=== PATIENT | female | born 1945 | race Hispanic/Latino ===

== ENCOUNTER 2019-05-27 09:20 | Outpatient (CLI) | payer MEDICARE ==
--- NOTE | 2019-05-27 11:33 | MMO ---
Bilateral MAMMO Bilat Screen [facility]. CLINICAL HISTORY: Patient is 73 years old and is seen for screening. The patient has no family history of breast cancer. The patient has no personal history of cancer. VIEWS: The views performed were: bilateral craniocaudal with tomosynthesis and bilateral mediolateral oblique with tomosynthesis. FILMS COMPARED: The present examination has been compared to prior imaging studies performed at [facility] on 02/01/2016, 02/09/2017 and 03/05/2018, and at [facility] on 09/28/2014. This study has been interpreted with the assistance of computer-aided detection. MAMMOGRAM FINDINGS: There are scattered fibroglandular densities. There are benign appearing calcifications seen in both breasts. There are benign scattered densities in both breasts. There are no suspicious masses, suspicious calcifications, or new areas of architectural distortion. IMPRESSION: THERE IS NO MAMMOGRAPHIC EVIDENCE OF MALIGNANCY. A ROUTINE FOLLOW-UP MAMMOGRAM IN 1 YEAR IS RECOMMENDED. THE RESULTS OF THIS EXAM WERE SENT TO THE PATIENT. ACR BI-RADS Category 2 - Benign finding MAMMOGRAPHY NOTE: 1. A negative mammogram report should not delay a biopsy if a dominant of clinically suspicious mass is present. 2. Approximately 10% to 15% of breast cancers are not detected by mammography. 3. Adenosis and dense breasts may obscure an underlying neoplasm. Reported by: JAXON BRADY MD Electonically Signed: [id number]
== END 2019-05-27 09:21 | disposition home or self-care (01) ==
LOC: BICMAMMO 09:20
PROVIDERS: ATTEND Student in an Organized Health Care Education/Training Program
DX: Z12.31 Encounter for screening mammogram for malignant neoplasm of breast (principal)
CPT/HCPCS: 77063; 77067

== ENCOUNTER 2019-11-28 10:20 | Observation (INO) | payer MEDICARE ==
[2019-11-28] MEDS ORDERED: Nitroglycerin 2% Ointment 1 INCH/1 GM Packet ONE (11:07)
[2019-11-28] MEDS ORDERED: Aspirin Chewable 81 MG TAB ONE (11:07)
[2019-11-28 11:22] LABS: #Basophils 0.1 thou/uL (0.0-0.2); #Eosinphils 0.2 thou/uL (0.0-0.7); #Lymphocytes 2.3 thou/uL (1.20-3.40); #Monocytes 0.5 thou/uL (0.11-0.59); #Neutrophils 4.9 thou/uL (1.40-6.50); %Basophils 1.6 % (0.0-1.0); %Eosinophils 2.2 % (0.0-10.0); %Monocytes 6.4 % (0.0-10.0); %Neutrophils 60.8 % (42.0-75.0); Hemoglobin 11.7 g/dL (12.0-16.0); Mean Corpuscular HGB CONC 31.1 g/dL (32.0-36.0); Mean Corpuscular Hemoglobin 27.3 pg (27.0-31.0); Mean Corpuscular Volume 87.8 fL (78.0-98.0); Mean Platelet Volume 8.3 fL (7.4-10.4); Platelet Count 296 thou/uL (130-400); RBC Distribution Width 13.7 % (11.5-14.5); White Blood Cell (WBC) Count 8.1 thou/uL (4.8-10.8)
[2019-11-28 11:36] LABS: ALT (SGPT) 17 U/L (8-55); AST (SGOT) 20 U/L (5-34); Albumin 4.5 g/dL (3.4-4.8); Alkaline Phosphatase 52 U/L (40-110); Anion Gap 16 mmol/L (10-20); BUN (Urea Nitrogen) 22 mg/dL (9.8-20.1); Bilirubin, Total 0.4 mg/dL (0.2-1.2); CK (CPK) 43 U/L (29-168); Calc. Creatinine Clearance 0 mL/min (70-130); Calcium 9.7 mg/dL (7.8-10.44); Carbon Dioxide 26 mmol/L (23-31); Chloride 103 mmol/L (98-107); Estimated GFR-MDRD 70; Globulin 2.5 g/dL (2.4-3.5); Glucose 118 mg/dL (83-110); Lipase 53 U/L (8-78); Potassium 3.9 mmol/L (3.5-5.1); Sodium 141 mmol/L (136-145)
--- NOTE | 2019-11-28 12:04 | PDOC.FPRHP ---
- History of Present Illness Chief Complaint: CP r/o History of Present Illness: 74 year old female with intermittent chest pain since the beginning of the year. She states it is sharp and stabbing nature. It lasts for a few seconds at a time. She experiences the pain several times a day, particularly over the last 2 days. Patient endorses radiation to left side of neck and down left arm. The radiation of symptoms resolves when chest pain resolves. Endorses associated nausea. Denies diaphoresis. Patient states the pain is located over left chest. Touching the left side of the chest does exacerbate the pain. Patient endorses associated dizziness, worse yesterday. The dizziness was after experiencing a sharp pain. Denies exacerbation of pain with deep breath or movement. Patient has not taken anything for pain specifically. Denies swelling in legs. Patient states she is able to walk a fair distance without shortness of breath. Patient denies abdominal pain, constipation, fever, chills. Endorses occasional diarrhea. Endorses a "tickle" cough at night related to sinuses. Patient has not taken BP medications this morning. Patient was referred to [facility] in late August for possible outpatient stress test. She had appointment scheduled, but was unable to go due to COVID-19, as all non- emergent appointments with Cardiology were cancelled. Patient with PMH DM, very well controlled on metformin. Patient lost a significant amount of weight which has helped (50 Ibs). Patient states she has gained approximately 20 Ibs of that back. Patient with HTN. Not checking BP at home. Reports she did not take BP medications today. Patient with history of iron deficiency anemia. No longer needing iron supplementation. 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 denies: fever/chills Eyes: denies: vision changes ENT: denies: nasal congestion, rhinorrhea Respiratory: reports: cough (at night). denies: congestion, shortness of breath Cardiovascular: reports: chest pain. denies: palpitation, edema Gastrointestinal: reports: nausea, diarrhea. denies: vomiting, constipation, abdominal pain, GI bleeding Skin: denies: rashes, lesions Musculoskeletal: denies: pain, tenderness, stiffness Neurological: reports: other (dizziness). denies: numbness, syncope Psychological: denies: anxiety, depression - Vital signs BP: 154/61 HR: 67 RR: 18 Tmax: 99.0 Pox: 96% on RA Wt: 59 kg - Physical Exam Constitutional: NAD, awake, alert and oriented, well developed HEENT: EOMI, grossly normal vision, grossly normal hearing, MMM Neck: FROM, no JVD Chest: no lesions Heart: RRR, no murmurs/rubs/gallops Lungs: CTAB, no respiratory distress Abdomen: soft, non-tender, bowel sounds present, no masses/distention Musculoskeletal: normal tone, ROM grossly normal Neurological: no focal deficit, CN II-XII intact Skin: capillary refill <2 seconds, no jaundice Heme/Lymphatic: no unusual bruising or bleeding, no purpura Psychiatric: normal mood and affect, good judgment and insight, intact recent and remote memory FMR H&P: Results - Labs Result Diagrams: 11/28/19 11:04 11/28/19 11:04 Lab results: WBC 8.1 thou/uL (4.8-10.8) 11/28/19 11:04 Hgb 11.7 g/dL (12.0-16.0) L 11/28/19 11:04 Hct 37.7 % (36.0-47.0) 11/28/19 11:04 MCV 87.8 fL (78.0-98.0) 11/28/19 11:04 Plt Count 296 thou/uL (130-400) 11/28/19 11:04 Neutrophils % 60.8 % (42.0-75.0) 11/28/19 11:04 Sodium 141 mmol/L (136-145) 11/28/19 11:04 Potassium 3.9 mmol/L (3.5-5.1) 11/28/19 11:04 Chloride 103 mmol/L (98-107) 11/28/19 11:04 Carbon Dioxide 26 mmol/L (23-31) 11/28/19 11:04 BUN 22 mg/dL (9.8-20.1) H 11/28/19 11:04 Creatinine 0.80 mg/dL (0.6-1.1) 11/28/19 11:04 Glucose 118 mg/dL (83-110) H 11/28/19 11:04 Calcium 9.7 mg/dL (7.8-10.44) 11/28/19 11:04 Total Bilirubin 0.4 mg/dL (0.2-1.2) 11/28/19 11:04 AST 20 U/L (5-34) 11/28/19 11:04 ALT 17 U/L (8-55) 11/28/19 11:04 Alkaline Phosphatase 52 U/L (40-110) 11/28/19 11:04 Creatine Kinase 43 U/L (29-168) 11/28/19 11:04 B-Natriuretic Peptide 225.3 pg/mL (0-100) H 11/28/19 11:04 Serum Total Protein 7.0 g/dL (6.0-8.3) 11/28/19 11:04 Albumin 4.5 g/dL (3.4-4.8) 11/28/19 11:04 Lipase 53 U/L (8-78) 11/28/19 11:04 - EKG Interpretation EKG: NSR, no ST abnormalities or T wave changes - Radiology Interpretation Chest x-ray Status: image reviewed by me, report reviewed by me Additional comment: CXR without infiltrates or edema, no pneumothorax. FMR H&P: A/P - Problem List (1) Atypical chest pain Current Visit: Yes Status: Acute Code(s): R07.89 - OTHER CHEST PAIN (2) Diabetes mellitus Current Visit: Yes Status: Acute Code(s): E11.9 - TYPE 2 DIABETES MELLITUS WITHOUT COMPLICATIONS Qualifiers: Diabetes mellitus type: type 2 (3) HTN (hypertension) Current Visit: Yes Status: Acute Code(s): I10 - ESSENTIAL (PRIMARY) HYPERTENSION Qualifiers: Hypertension type: essential hypertension Qualified Code(s): I10 - Essential (primary) hypertension - Plan Pt is a 74 yo female who presents for: # Chest Pain Not likely cardiac but pain has been intermittent since 07/21, she was unable to have cardiology visit in outpt setting 2/2 COVID - cardiac stress pending in am, NPO midnight - pt has nitro-paste on chest - TSH pending # HLD - continue home meds - Lipid pending # HTN - continue home meds - hold metoprolol in am # DM II - continue home meds - pending a1c # Iron Deficiency Anemia - well controlled - will not continue iron # Weight Loss Pt has hx of 50 # weight loss then regaining 20 #'s. She has family hx of stomach cancer but does not want any scans. # Allergies - continue home meds VTE: lovenox Fluids: PO Diet: HH, NPO midnight Code: Full Dispo: < 48 hrs stay on tele FMR H&P: Upper Level - Pertinent history 74 year old female presents with intermittent chest pain since August. Patient described pain as sharp and stabbing in nature, lasting only seconds at a time. Pain not worse with exertion. Pain sometimes associated with dizziness and nausea. Denies diaphoresis. Associated left sided neck and arm pain. Not worsened with deep breath or movement. Endorses pain with palpation. Patient with history of very well controlled DM and HTN. She was supposed to see Cardiology in August due to this chest pain. An appt was scheduled but then cancelled due to COVID-19. - Pertinent findings General: Alert and oriented x3. NAD. HEENT: MMM. Card: RRR, no murmur Resp: CTA bilaterally, no acute respiratory distress MSK: TTP over left anterior chest, worse near sternal border Abdomen: Non-tender to palpation, bowel sounds present Ext: No edema or cyanosis - Plan Date/Time: 11/28/19 1203 IAlejandra, have evaluated this patient and agree with findings/plan as outlined by fall internship resident. Pertinent changes/additions are listed here. Atypical chest pain - EKG NSR - Heart score: 4 - Risk factors include age, DM, HLD, HTN - Stress test in AM - NPO at midnight, hold BB at midnight - Trend trop DM type II - Last HgA1c a year ago was 5.8 - On metformin BID - CC, HH diet - Very well controlled - Will get HgA1c to evaluate since it has been a year since last HgA1c HTN - Continue home medications DVT PPX: Lovenox GI PPX: None Code Status: Full Dispo: Obs on telemetry. Stress test in AM. Addendum - Attending - Attending Attestation Date/Time: 11/28/191918 I personally evaluated the patient and discussed the management with Dr. Deluca /Kinjal. I agree with the History, Examination, Assessment and Plan documented above with any addition or exceptions noted below. Patient of mine here for continued chest pain and inability to get outpatient workup. Stress in AM, comorbid conditions are well controlled.
--- NOTE | 2019-11-28 12:52 | RAD ---
PORTABLE CHEST: DATE: 11/28/2019. PROVIDED CLINICAL HISTORY: Chest pain. FINDINGS: Comparison 12/20/2010. Cardiac and mediastinal silhouette is within normal limits. No focal consolid ation, pleural fluid, or pneumothorax apparent. IMPRESSION: No evidence for an acute cardiopulmonary process. POS: LEX
[2019-11-28 13:54] VITALS: BMI 25.4
[2019-11-28] MEDS ORDERED: Ondansetron PF 4 MG/2 ML Vial IVP PRN (14:20)
[2019-11-28] MEDS ORDERED: Sodium Chloride 0.9% 1,000 ML IV SCH (14:20)
[2019-11-28] MEDS ORDERED: Ondansetron ODT 4 MG TAB SL PRN (14:20)
[2019-11-28] MEDS ORDERED: Hydrochlorothiazide 25 MG TAB PO SCH (14:25)
[2019-11-28] MEDS ORDERED: Acetaminophen 325 MG TAB PO PRN (14:29)
[2019-11-28] MEDS ORDERED: Lisinopril 20 MG TAB PO SCH (14:30)
[2019-11-28] MEDS ORDERED: Nitroglycerin 2% Ointment 1 INCH/1 GM Packet TOP SCH (14:30)
[2019-11-28 14:52] LABS: Hemoglobin A1c 5.8 % (4.0-6.0)
[2019-11-28 14:53] LABS: Troponin I Less than 0.010 ng/mL (< 0.028)
[2019-11-28] MEDS ORDERED: Nitroglycerin 0.4 MG TAB (25 Tab Bottle) SL PRN (16:10)
[2019-11-28 17:28] LABS: Troponin I Less than 0.010 ng/mL (< 0.028)
[2019-11-28] MEDS ORDERED: Metoprolol Tartrate 50 MG TAB PO SCH (19:00)
[2019-11-29 05:25] LABS: Anion Gap 14 mmol/L (10-20); BUN (Urea Nitrogen) 24 mg/dL (9.8-20.1); Calc. Creatinine Clearance 55 mL/min (70-130); Calcium 9.3 mg/dL (7.8-10.44); Carbon Dioxide 29 mmol/L (23-31); Cardiac Risk 2.5 (Less than 4.5); Chloride 102 mmol/L (98-107); Cholesterol 116 mg/dl (< 200 Desired); Estimated GFR-MDRD 63; Glucose 106 mg/dL (83-110); HDL Cholesterol 46 mg/dL (>60 Neg Risk); LDL Cholesterol, Calculated 57 mg/dL; Potassium 3.9 mmol/L (3.5-5.1); Sodium 141 mmol/L (136-145); Triglycerides 66 mg/dL (Less than 150)
--- NOTE | 2019-11-29 07:17 | PDOC.FM ---
- Subjective Subjective: Pt did well overnight. She had intermittent shart chest pain, 09/12, per nurse. - Objective Vital Signs & Weight: Vital Signs (12 hours) Temp Pulse Resp BP Pulse Ox 11/29/19 04:00 97.4 F L 64 16 94/52 L 97 11/29/19 00:17 99 11/28/19 23:12 97.9 F 66 16 110/55 L 98 11/28/19 19:27 99 F 69 16 136/64 99 Weight Weight 61.19 kg Result Diagrams: 11/28/19 11:04 11/29/19 04:45 Phys Exam - Physical Examination Constitutional: NAD Neck: no JVD, full ROM No respiratory distress Musculoskeletal: no edema Neurological: non-focal, moves all 4 limbs Psychiatric: normal affect, A&O x 3 Dx/Plan (1) Atypical chest pain Code(s): R07.89 - OTHER CHEST PAIN Status: Acute (2) Diabetes mellitus Code(s): E11.9 - TYPE 2 DIABETES MELLITUS WITHOUT COMPLICATIONS Status: Acute Qualifiers: Diabetes mellitus type: type 2 (3) HTN (hypertension) Code(s): I10 - ESSENTIAL (PRIMARY) HYPERTENSION Status: Acute Qualifiers: Hypertension type: essential hypertension Qualified Code(s): I10 - Essential (primary) hypertension - Plan Plan: Pt is a 74 yo female who presents for: # Chest Pain Not likely cardiac but pain has been intermittent since 07/21, she was unable to have cardiology visit in outpt setting 2/ COVID - cardiac stress pending in am, NPO midnight - pt has nitro-paste on chest - TSH WNL - Trop neg x 3 # HLD - continue home meds - Lipid profile well controlled - continue statin with recommendation based on ASCVD risk calculator # HTN - continue home meds - hold metoprolol in am # DM II - continue home meds - a1c 5.8 # Iron Deficiency Anemia - well controlled - will not continue iron # Weight Loss Pt has hx of 51 # weight loss then regaining 20 #'s. She has family hx of stomach cancer but does not want any scans. # Allergies - continue home meds VTE: lovenox Fluids: PO Diet: HH, NPO midnight Code: Full Dispo: < 48 hrs stay on tele Addendum - Attending - Attending Attestation Date/Time: 11/30/19 1207 I personally evaluated the patient and discussed the management with Dr. Deluca. I agree with the History, Examination, Assessment and Plan documented above with any addition or exceptions noted below. Patient stable, stress normal. Follow up outpatient with cardiology. Stable for discharge.
[2019-11-29] MEDS ORDERED: Enoxaparin Sodium 40 MG/0.4 ML SYRINGE SC SCH (09:00)
[2019-11-29] MEDS ORDERED: Aspirin 81 mg Enteric Coated Tablet PO SCH (09:00)
[2019-11-29] MEDS ORDERED: Hydrochlorothiazide 25 MG TAB PO SCH (09:00)
[2019-11-29] MEDS ORDERED: Lisinopril 20 MG TAB PO SCH (09:00)
[2019-11-29] MEDS ORDERED: ADENOSINE 60 MG/20 ML VIAL ONE (09:22)
[2019-11-29] MEDS ORDERED: Dextrose 50% Abboject 50 ML SYRINGE SLOW IVP PRN (11:05)
[2019-11-29] MEDS ORDERED: Dextrose 5% in Water 1,000 ML IV PRN (11:05)
[2019-11-29] MEDS ORDERED: HumaLOG 300 UNITS/3 ML VIAL SC PRN ×2 (11:05)
--- NOTE | 2019-11-29 12:02 | NM ---
CARDIAC SPECT: HISTORY: A 74-year-old female with chest pain, hypertension, diabetes, and dyslipidemia. TECHNIQUE: A myocardial perfusion scan was performed using the single-isotope 1-day protocol with Technetium 99m sestamibi. Ten mCi were injected intravenously for the rest exam followed by 31 mCi for the stress study. Pharmacologic stress with adenosine is monitored and interpreted by MIRIAN Jones. FINDINGS: Homogeneous tracer distribution is seen in the myocardial segments on stress and rest images without fixed or reversible defects. GATED SPECT LVEF: 73%. WALL MOTION EXAM: Normal. IMPRESSION: Normal myocardial perfusion scan. POS: [facility]
[2019-11-29 15:04] VITALS: BP 131/68; TEMP 98.6
--- NOTE | 2019-11-30 14:24 | EKG ---
Test Reason : Blood Pressure : / mmHG Vent. Rate : 076 BPM Atrial Rate : 076 BPM P-R Int : 152 ms QRS Dur : 086 ms QT Int : 382 ms P-R-T Axes : 043 037 -05 degrees QTc Int : 429 ms Normal sinus rhythm with sinus arrhythmia Normal ECG Confirmed by VIRGIL SHEPHERD, CHER ([id number]), commercial production editor DEBBIE ARTEAGA ([id number]) on 11/30/2019 2:23:28 PM Referred By: Confirmed By:CHER HERMAN MD
--- NOTE | 2019-11-30 14:37 | DIS ---
DATE OF ADMISSION: 11/28/2019 DATE OF DISCHARGE: 11/29/2019 RESIDENT: Luke Deluca DO ADMITTING ATTENDING: Dr. Ruiz Isabel. DISCHARGE ATTENDING: Dr. Ruiz Isabel. CONSULTATIONS: None. PROCEDURES: 1. Chest x-ray on 11/28/2019 revealed no evidence of acute cardiopulmonary process. 2. Stress test on 11/29/2019 revealed homogeneous tracer distribution seen in the myocardial segments on stress and rest images without fixed reversible defects. Wall motion and exam normal. Normal myocardial perfusion scan. PRIMARY DIAGNOSES: 1. Atypical chest pain. 2. Diabetes mellitus. 3. Hypertension. 4. Hyperlipidemia. 5. Iron-deficiency anemia. 6. History of weight loss. 7. Seasonal allergies. SECONDARY DIAGNOSIS: None. DISCHARGE MEDICATIONS: 1. Metformin 500 mg p.o. b.i.d. 2. Quinapril/hydrochlorothiazide 20-25 mg p.o. daily. 3. Atorvastatin 20 mg p.o. daily. 4. Lopressor 50 mg p.o. b.i.d. 5. Montelukast 10 mg p.o. daily. Discontinued medications: Metformin 500 mg p.o. t.i.d. HISTORY OF PRESENT ILLNESS/HOSPITAL COURSE: Tamir is a 74-year-old female with past medical history significant for diabetes, hypertension, and hyperlipidemia who presented with intermittent chest pain starting from beginning of the year. It was sharp and stabbing in nature. She had seen in [facility] by Dr. Isabel who recommended that she be seen by Cardiology. She was unable to follow up with Cardiology due to COVID-19 pandemic and this case was non-emergent. Her symptoms were particularly worse over the previous few days, which prompted the patient to be seen in the emergency department. Due to her symptoms and her history, she underwent a cardiac stress test, which revealed no cardiac defects and stress test was within normal limits. The patient should follow up with [facility] and at that time, she will have referral to Cardiology for potential further workup. Due to her symptoms and her past medical history, she might be warranted to have a catheterization. Of note, patient does take metformin 500 mg p.o. t.i.d. We advised her to take the metformin b.i.d. instead of t.i.d. She is very well controlled with an A1c of 5.8. Other labs included triglycerides 66, cholesterol 116, LDL 57, HDL 46, TSH 1.38, lipase 53. Kidney function was normal with a BUN and creatinine of 24 and 0.88. Electrolytes were within normal limits. Of note, patient does have a recent 50-pounds weight loss, but then regained 20 pounds. She has been advised by her primary care physician, Dr. Isabel, that she should be worked up for possible stomach cancer. Her mother from stomach cancer, but she denies wanting any scans or endoscopy. DISCHARGE INSTRUCTIONS: 1. Location: [facility]. 2. Diet: Heart healthy. 3. Activity: Ad ruchi. 4. Followup: Follow up with [facility] within 14 days. DISPOSITION: Stable. Job ID: [id number]
== END 2019-11-29 14:55 | disposition home or self-care (01) ==
LOC: ERS 10:20 → 2SE 11:54
PROVIDERS: ADMIT Student in an Organized Health Care Education/Training Program; ATTEND Student in an Organized Health Care Education/Training Program
DX: R07.89 Other chest pain (principal); E11.9 Type 2 diabetes mellitus without complications; E78.5 Hyperlipidemia, unspecified; I10 Essential (primary) hypertension; D50.9 Iron deficiency anemia, unspecified; J30.2 Other seasonal allergic rhinitis; M43.16 Spondylolisthesis, lumbar region; Z79.84 Long term (current) use of oral hypoglycemic drugs; Z79.899 Other long term (current) drug therapy; Z88.8 Allergy status to other drugs, medicaments and biological substances
CPT/HCPCS: 71045; 78452; 80048; 80061; 82550; 82962; 83036; 83690; 83880; 84484 ×2; 93005; 93017; 94760; 96360; 96361; 96372; 97139; 99285; A9500; G0378 ×3; 36415; 36416; 80053; 84443; 85025; J0153; J1650

== ENCOUNTER 2020-05-23 11:41 | Outpatient (CLI) | payer MEDICARE ==
--- NOTE | 2020-05-23 12:36 | MMO ---
Bilateral MAMMO Bilat Screen [facility]. CLINICAL HISTORY: Patient is 74 years old and is seen for screening. The patient has no family history of breast cancer. The patient has no personal history of cancer. VIEWS: The views performed were: bilateral craniocaudal with tomosynthesis and bilateral mediolateral oblique with tomosynthesis. FILMS COMPARED: The present examination has been compared to prior imaging studies performed at [facility] on 02/01/2016, 02/09/2017, 03/05/2018 and 05/27/2019. This study has been interpreted with the assistance of computer-aided detection. MAMMOGRAM FINDINGS: There are scattered fibroglandular densities. There are stable benign appearing calcifications seen in both breasts. There are no suspicious masses, suspicious calcifications, or new areas of architectural distortion. IMPRESSION: THERE IS NO MAMMOGRAPHIC EVIDENCE OF MALIGNANCY. A ROUTINE FOLLOW-UP MAMMOGRAM IN 1 YEAR IS RECOMMENDED. THE RESULTS OF THIS EXAM WERE SENT TO THE PATIENT. ACR BI-RADS Category 2 - Benign finding MAMMOGRAPHY NOTE: 1. A negative mammogram report should not delay a biopsy if a dominant of clinically suspicious mass is present. 2. Approximately 10% to 15% of breast cancers are not detected by mammography. 3. Adenosis and dense breasts may obscure an underlying neoplasm. Reported by: CHRISTINE VICENTE MD Electonically Signed: [id number]
== END 2020-05-23 11:42 | disposition home or self-care (01) ==
LOC: BICMAMMO 11:41
PROVIDERS: ATTEND Student in an Organized Health Care Education/Training Program
DX: Z12.31 Encounter for screening mammogram for malignant neoplasm of breast (principal)
CPT/HCPCS: 77063; 77067

== ENCOUNTER 2020-07-09 08:44 | Outpatient (CLI) | payer MEDICARE ==
--- NOTE | 2020-07-09 09:54 | BD ---
DEXA BONE DENSITY STUDY: Date: 07/09/2020 HISTORY: Postmenopausal. FINDINGS: Lumbar Spine: BMD (g/cm2) L1 0.888 T-Score: -0.9 L2 1.128 T-Score: +0.9 L3 1.062 T-Score: -0.2 L4 1.046 T-Score: -0.1 Total 1.032 T-Score: -0.1 Left Femoral Neck: 0.777 T-Score: -0.6 Total Femur: 0.958 T-Score: +0.1 IMPRESSION: Normal bone mineral density of the left femoral neck and spine. POS: [facility] T
== END 2020-07-09 08:45 | disposition home or self-care (01) ==
LOC: BICMAMMO 08:44
PROVIDERS: ATTEND Student in an Organized Health Care Education/Training Program
DX: Z13.820 Encounter for screening for osteoporosis (principal); Z78.0 Asymptomatic menopausal state
CPT/HCPCS: 77080

== ENCOUNTER 2021-05-31 11:05 | Outpatient (CLI) | payer MEDICARE | END 2021-05-31 11:06 | disposition home or self-care (01) | LOC: BICMAMMO 11:05 | PROVIDERS: ATTEND Student in an Organized Health Care Education/Training Program | DX: Z12.31 Encounter for screening mammogram for malignant neoplasm of breast (principal) | CPT/HCPCS: 77063; 77067 ==

== ENCOUNTER 2022-06-06 12:32 | Outpatient (CLI) | payer MEDICARE | END 2022-06-06 12:33 | disposition home or self-care (01) | LOC: BICMAMMO 12:32 | PROVIDERS: ATTEND Student in an Organized Health Care Education/Training Program | DX: Z12.31 Encounter for screening mammogram for malignant neoplasm of breast (principal) | CPT/HCPCS: 77063; 77067 ==

== ENCOUNTER 2023-07-01 08:45 | Outpatient (CLI) | payer MEDICARE | END 2023-07-01 08:46 | disposition home or self-care (01) | LOC: BICMAMMO 08:45 | PROVIDERS: ATTEND Student in an Organized Health Care Education/Training Program | DX: Z12.31 Encounter for screening mammogram for malignant neoplasm of breast (principal) | CPT/HCPCS: 77063; 77067 ==

== ENCOUNTER 2023-08-19 09:31 | Outpatient (CLI) | payer MEDICARE | END 2023-08-19 09:32 | disposition home or self-care (01) | LOC: BICMAMMO 09:31 | PROVIDERS: ATTEND Student in an Organized Health Care Education/Training Program | DX: Z13.820 Encounter for screening for osteoporosis (principal); M85.852 Other specified disorders of bone density and structure, left thigh; Z78.0 Asymptomatic menopausal state | CPT/HCPCS: 77080 ==

== ENCOUNTER 2024-02-24 12:00 | Emergency (ER) | payer MEDICARE ==
[2024-02-24] MEDS ORDERED: HYDROcodone/Acetaminophen 5/325 mg Tablet ONE (12:39)
== END 2024-02-24 15:09 | disposition home or self-care (01) ==
LOC: ERS 12:00
DX: M79.602 Pain in left arm (principal); M25.522 Pain in left elbow; E11.9 Type 2 diabetes mellitus without complications; I10 Essential (primary) hypertension; E78.5 Hyperlipidemia, unspecified; Z79.84 Long term (current) use of oral hypoglycemic drugs; Z79.899 Other long term (current) drug therapy
CPT/HCPCS: 71045; 93005

== ENCOUNTER 2024-07-29 09:02 | Outpatient (CLI) | payer MEDICARE | END 2024-07-29 09:03 | disposition home or self-care (01) | LOC: BICMAMMO 09:02 | PROVIDERS: ATTEND Student in an Organized Health Care Education/Training Program | DX: Z12.31 Encounter for screening mammogram for malignant neoplasm of breast (principal) | CPT/HCPCS: 77063; 77067 ==